=== PATIENT | female | born 1940 | race Caucasian/White ===

== ENCOUNTER → 2016-08-11 | Outpatient (CLI) | payer MEDICARE, OTHER | END | disposition home or self-care (01) | LOC: GMAB 10:36 | PROVIDERS: ATTEND Family Medicine | DX: I10 Essential (primary) hypertension (principal) ==

== ENCOUNTER → 2016-08-27 | Outpatient (CLI) | payer MEDICARE, OTHER | LOC: GMAB 16:29 | PROVIDERS: ATTEND Family Medicine | DX: D50.9 Iron deficiency anemia, unspecified (principal); E53.8 Deficiency of other specified B group vitamins; N17.9 Acute kidney failure, unspecified ==

== ENCOUNTER → 2016-09-17 | Outpatient (CLI) | payer MEDICARE, OTHER | END | disposition home or self-care (01) | LOC: NC 12:54 | PROVIDERS: ATTEND Family Medicine | DX: D64.9 Anemia, unspecified (principal); I10 Essential (primary) hypertension ==

== ENCOUNTER → 2016-09-18 | Outpatient (CLI) | payer MEDICARE, OTHER ==
--- NOTE | 2016-09-21 17:17 | RAD ---
EXAM DESCRIPTION: Knee,Left Complete CLINICAL HISTORY: 76 years, Female, PAIN IN LT KNEE COMPARISON: None TECHNIQUE: Four views of the left knee FINDINGS: Severe patellofemoral arthritis with marked joint space narrowing and prominent marginal osteophytes with related small effusion. Mild narrowing medial and lateral compartments. Chondrocalcinosis medial and lateral menisci. IMPRESSION: 1. Severe patellofemoral arthritis 2. CPPD/pseudogout Electronically signed by: Luis De La Cruz MD 09/21/2016 5:16 PM CDT
--- NOTE | 2016-09-21 17:18 | RAD ---
EXAM DESCRIPTION: Knee,Right Complete CLINICAL HISTORY: 76 years, Female, PAIN IN RT KNEE COMPARISON: None TECHNIQUE: Four views of the right knee FINDINGS: Severe patellofemoral arthritis with marked joint space narrowing and prominent marginal osteophytes. Small joint effusion. Significant narrowing medial compartment of the right knee joint with medial marginal osteophytes. Faint chondrocalcinosis medial and lateral menisci. IMPRESSION: 1. Severe patellofemoral arthritis and medial compartment arthritis 2. CPPD/pseudogout Electronically signed by: Luis De La Cruz MD 09/21/2016 5:16 PM CDT
--- NOTE | 2016-09-21 17:18 | RAD ---
EXAM DESCRIPTION: Pelvis CLINICAL HISTORY: 76 years Female, PAIN IN BOTH HIPS COMPARISON: None. FINDINGS: AP pelvis shows no bone or soft tissue abnormality of the pelvis/hips. SI joints are unremarkable. Severe degenerative changes of the visualized portion of the lower lumbar spine. IMPRESSION: Lumbar spondylosis Electronically signed by: Luis De La Cruz MD 09/21/2016 5:17 PM CDT
== END | disposition home or self-care (01) ==
LOC: RAD 07:42
PROVIDERS: ATTEND Orthopaedic Surgery
DX: M25.561 Pain in right knee (principal); M25.562 Pain in left knee; M25.551 Pain in right hip; M25.552 Pain in left hip

== ENCOUNTER → 2016-11-05 | Outpatient (CLI) | payer MEDICARE, OTHER | END | disposition home or self-care (01) | LOC: NC 15:33 | PROVIDERS: ATTEND Family Medicine | DX: I10 Essential (primary) hypertension (principal) ==

== ENCOUNTER → 2016-11-14 | Outpatient (CLI) | payer MEDICARE, OTHER | END | disposition home or self-care (01) | LOC: NC 10:46 | PROVIDERS: ATTEND Family Medicine | DX: R30.0 Dysuria (principal) ==

== ENCOUNTER → 2017-02-05 | Outpatient (CLI) | payer MEDICARE, OTHER | END | disposition home or self-care (01) | LOC: NC 11:58 | PROVIDERS: ATTEND Family Medicine | DX: N17.9 Acute kidney failure, unspecified (principal); I10 Essential (primary) hypertension ==